=== PATIENT | male | born 1960 | race Caucasian/White ===

== ENCOUNTER 2019-12-21 10:36 | Inpatient (IN) | payer OTHER ==
[~2019-12-21] VITALS: Ht 193 cm; Wt 68.0 kg
--- NOTE | 2019-12-21 11:20 | NUR ---
PT'S SPOUSE ARRIVED. RPT'S PT'S SHORT/SENIOR LIVING MEMORY LOSS HAS PROGRESSED OVER THE LAST 18 MONTHS. PT C/O PALPITATIONS/FLUTTERING IN CHEST THIS AM. PT DOESN'T REMEMBER FALLING OUT OF BED THIS WELL.
--- NOTE | 2019-12-21 11:30 | NUR ---
PT AMBULATED TO SBA. STEADY GAIT. WARM BLANKETS PROVIDED.
[2019-12-21] MEDS ORDERED: SODIUM CHLORIDE FLUSH 10ML SYR IVF ONE (12:00)
[2019-12-21] MEDS: PLEASE ENTER ALLERGIES MC SCH ×2 (12:00→18:36)
[2019-12-21 12:08] LABS: MICROSCOPIC NOT IND
[2019-12-21 12:20] LABS: BASOPHILS # (AUTO) 0.02 x10^3/uL (0-0.1); BASOPHILS % (AUTO) 0 % (0-1); EOSINOPHILS # (AUTO) 0.01 x10^3/uL (0-0.4); EOSINOPHILS % (AUTO) 0 % (1-7); LYMPHOCYTES # (AUTO) 1.03 x10^3/uL (1-3.4); LYMPHOCYTES % (AUTO) 13 % (22-44); MD NO; MEAN CORPUSCULAR HEMOGLOBIN 29.4 pg (27.5-34.5); MEAN CORPUSCULAR HGB CONC 32.4 g/dL (33.2-36.2); MEAN CORPUSCULAR VOLUME 90.7 fL (81-97); MEAN PLATELET VOLUME 7.7 fL (7.4-10.4); MONOCYTES % (AUTO) 5 % (2-9); NEUTROPHILS # (AUTO) 6.72 x10^3/uL (1.8-6.8); NEUTROPHILS % (AUTO) 82 % (42-75); PLATELET COUNT 278 x10^3/uL (130-400); RED CELL DISTRIBUTION WIDTH 14.6 % (9.4-14.8)
[2019-12-21 12:30] LABS: INTERNATIONAL NORMALIZED RATIO 1.03 (0.93-1.1); PROTHROMBIN TIME 10.9 Seconds (9.6-11.5)
[2019-12-21 12:32] LABS: ALANINE AMINOTRANSFERASE 42 U/L (12-78); ANION GAP 6 mmol/L (5-15); CALCIUM 8.7 mg/dL (8.5-10.1); CHLORIDE 104 mmol/L (98-107); CREATININE 1.11 mg/dL (0.7-1.3)
[2019-12-21 12:36] LABS: ALKALINE PHOSPHATASE 40 U/L (45-117); CREATINE KINASE, TOTAL 136 U/L (39-308); TOTAL PROTEIN 7.6 g/dL (6.4-8.2); TROPONIN I < 0.015 ng/mL (0.000-0.045)
[2019-12-21 12:58] LABS: HCT (SEDRATE) 52.6 % (39.2-51.8)
[2019-12-21] MEDS ORDERED: GADOTERATE 7.5 MMOL/15 ML SYR ONE (13:59)
[2019-12-21 18:40] VITALS: BP 142/80
[2019-12-21 18:45] VITALS: BP 141/90
[2019-12-21 18:50] VITALS: BP 153/92
[2019-12-21] MEDS ORDERED: TAMS-11 PO (21:40)
[2019-12-21] MEDS ORDERED: TEST200V3 IM (21:40)
[2019-12-22] VITALS (7 sets, daily range): BP systolic 113–153; BP diastolic 73–92
[2019-12-22] MEDS: PLEASE ENTER ALLERGIES MC SCH (04:00)
[2019-12-22 05:44] LABS: BASOPHILS # (AUTO) 0.04 x10^3/uL (0-0.1); BASOPHILS % (AUTO) 1 % (0-1); EOSINOPHILS # (AUTO) 0.09 x10^3/uL (0-0.4); EOSINOPHILS % (AUTO) 1 % (1-7); LYMPHOCYTES # (AUTO) 1.57 x10^3/uL (1-3.4); LYMPHOCYTES % (AUTO) 20 % (22-44); MD NO; MEAN CORPUSCULAR HEMOGLOBIN 29.7 pg (27.5-34.5); MEAN CORPUSCULAR HGB CONC 32.7 g/dL (33.2-36.2); MEAN CORPUSCULAR VOLUME 90.9 fL (81-97); MEAN PLATELET VOLUME 7.6 fL (7.4-10.4); MONOCYTES # (AUTO) 0.54 x10^3/uL (0.2-0.8); MONOCYTES % (AUTO) 7 % (2-9); NEUTROPHILS # (AUTO) 5.79 x10^3/uL (1.8-6.8); NEUTROPHILS % (AUTO) 72 % (42-75); PLATELET COUNT 259 x10^3/uL (130-400); RED BLOOD COUNT 5.67 x10^6/uL (4.38-5.82); RED CELL DISTRIBUTION WIDTH 14.9 % (9.4-14.8)
[2019-12-22 05:54] LABS: ANION GAP 8 mmol/L (5-15); CALCIUM 8.5 mg/dL (8.5-10.1); CHLORIDE 108 mmol/L (98-107)
[2019-12-22 05:55] LABS: CREATININE 1.13 mg/dL (0.7-1.3)
[2019-12-22] MEDS ORDERED: SODIUM CHLORIDE 0.9% 1,000 ML IV SCH (09:00)
[2019-12-22] MEDS ORDERED: SODIUM CHLORIDE 0.9% 1,000ML IVBOLUS ONE (09:00)
[2019-12-22] MEDS ORDERED: TAMSULOSIN 0.4 MG CAP.ER.24H PO SCH (21:00)
== END 2019-12-22 16:48 | disposition home or self-care (01) | DRG 312 ==
LOC: ED 11:14 → EDIP 13:15 → 4EST 18:13 → DCLOUNGE 12-22 16:36
PROVIDERS: ADMIT Internal Medicine Infectious Disease; ATTEND Internal Medicine Infectious Disease
DX: I95.1 Orthostatic hypotension (principal); F12.10 Cannabis abuse, uncomplicated; G93.9 Disorder of brain, unspecified; W19.XXXA Unspecified fall, initial encounter; W22.8XXA Striking against or struck by other objects, initial encounter; Z72.0 Tobacco use; Z82.0 Family history of epilepsy and other diseases of the nervous system; Y93.89 Activity, other specified; Y92.89 Other specified places as the place of occurrence of the external cause; Y99.8 Other external cause status
CPT/HCPCS: 36415; 70450; 70553; 71045; 80048; 80053; 81003; 82550; 83605; 83735; 84100; 84443; 84484; 85025; 85610; 85651; 93005; 93306; 93880; G0378; A9575; J7030